=== PATIENT | female | born 1970 | race Caucasian/White ===

== ENCOUNTER 2017-01-09 22:03 | Emergency (ER) | payer OTHER, MEDICAID ==
[~2017-01-09] VITALS: Ht 157.5 cm; Wt 78.0 kg
[2017-01-09 22:31] VITALS: BP 121/62
== END 2017-01-10 01:30 | disposition left against medical advice (07) ==
LOC: ER 22:04
DX: Z71.1 Person with feared health complaint in whom no diagnosis is made (principal); Z53.21 Procedure and treatment not carried out due to patient leaving prior to being seen by health care provider

== ENCOUNTER 2018-12-01 20:04 | Emergency (ER) | payer MEDICAID, OTHER ==
[~2018-12-01] VITALS: Ht 157.5 cm; Wt 72.0 kg
[2018-12-01 20:47] VITALS: BP 107/81
== END 2018-12-02 00:05 | disposition home or self-care (01) ==
LOC: ER 20:04
DX: S60.562A Insect bite (nonvenomous) of left hand, initial encounter (principal); S60.561A Insect bite (nonvenomous) of right hand, initial encounter; F31.9 Bipolar disorder, unspecified; F20.9 Schizophrenia, unspecified; Z98.890 Other specified postprocedural states; Z88.0 Allergy status to penicillin; W57.XXXA Bitten or stung by nonvenomous insect and other nonvenomous arthropods, initial encounter; Y93.89 Activity, other specified; Y92.89 Other specified places as the place of occurrence of the external cause; Y99.8 Other external cause status
CPT/HCPCS: 99282

== ENCOUNTER 2019-01-14 17:32 | Emergency (ER) | payer MEDICAID ==
[~2019-01-14] VITALS: Ht 157.5 cm; Wt 75.0 kg
[2019-01-14 22:30] VITALS: BP 112/66
== END 2019-01-14 22:33 | disposition home or self-care (01) ==
LOC: ER 17:32
DX: R10.30 Lower abdominal pain, unspecified (principal); F20.9 Schizophrenia, unspecified; F31.9 Bipolar disorder, unspecified; Z88.0 Allergy status to penicillin; Z98.890 Other specified postprocedural states
CPT/HCPCS: 99283

== ENCOUNTER 2019-09-04 19:48 | Emergency (ER) | payer MEDICAID ==
[~2019-09-04] VITALS: Ht 157.5 cm; Wt 78.3 kg
[2019-09-04 21:05] LABS: CLARITY URINE CLEAR (CLEAR); COLOR URINE YELLOW (YELLOW); KETONES URINE TRACE (NEGATIVE); LEUKOCYTE ESTERASE URINE NEGATIVE (NEGATIVE); NITRITE URINE NEGATIVE (NEGATIVE); OCCULT BLOOD URINE NEGATIVE (NEGATIVE); PH URINE 6.5 (4.5-8.0); PROTEIN URINE NEGATIVE (NEGATIVE); SPECIFIC GRAVITY URINE 1.013 (1.005-1.030); UROBILINOGEN URINE 0.2 E.U./dL (0.2-1.0)
[2019-09-04 22:00] VITALS: BP 133/47
[2019-09-04] MEDS ORDERED: KETOROLAC 60MG/2ML VIAL IM ONE (22:00)
== END 2019-09-05 00:02 | disposition home or self-care (01) ==
LOC: ER 19:48
DX: M54.5 Low back pain (principal); Z88.0 Allergy status to penicillin
CPT/HCPCS: 72070; 81003; 99284; J1885

== ENCOUNTER 2019-12-25 00:20 | Emergency (ER) | payer MEDICAID ==
[~2019-12-25] VITALS: Ht 157.5 cm; Wt 78.0 kg
[2019-12-25 07:13] LABS: CLARITY URINE CLEAR (CLEAR); COLOR URINE YELLOW (YELLOW); KETONES URINE NEGATIVE (NEGATIVE); LEUKOCYTE ESTERASE URINE NEGATIVE (NEGATIVE); NITRITE URINE NEGATIVE (NEGATIVE); OCCULT BLOOD URINE NEGATIVE (NEGATIVE); PROTEIN URINE NEGATIVE (NEGATIVE); UROBILINOGEN URINE 0.2 E.U./dL (0.2-1.0)
[2019-12-25 09:40] LABS: HEMATOCRIT. 38.6 % (36.0-48.0); MEAN CORPUSCULAR HEMOGLOBIN 30.3 pg (28.0-32.0); MEAN CORPUSCULAR VOLUME 89.6 fL (81.0-99.0); MEAN PLATELET VOLUME 8.9 fl (7.4-10.4); NEUTROPHILS % 57.4 % (40.0-76.0); PLATELET 180 x1000/uL (130-400); RED BLOOD CELL COUNT 4.31 mill/uL (4.2-5.4); RED CELL DISTRIBUTION WIDTH 13.9 % (11.6-14.6)
[2019-12-25 09:41] LABS: BASOPHILS % 0.5 % (0.0-2.0); EOSINOPHILS % 2.5 % (0.0-5.0); LYMPHOCYTES % 31.7 % (20.0-50.0); MONOCYTES % 7.9 % (2.0-8.0)
[2019-12-25 09:46] LABS: CHLORIDE 109 mEq/L (98-107)
[2019-12-25 09:58] LABS: B-HCG QUANTITATIVE < 1 mIU/mL (<3)
[2019-12-25 10:18] VITALS: BP 102/54
== END 2019-12-25 11:01 | disposition home or self-care (01) ==
LOC: ER 00:20
DX: R10.9 Unspecified abdominal pain (principal); D25.9 Leiomyoma of uterus, unspecified; Z88.0 Allergy status to penicillin; Z88.8 Allergy status to other drugs, medicaments and biological substances
CPT/HCPCS: 36415; 76830; 76856; 80053; 81003; 81025; 84702; 85025; 86850; 86900; 93005; 99285

== ENCOUNTER 2023-12-03 15:49 | Emergency (ER) | payer MEDICAID ==
[~2023-12-03] VITALS: Ht 157.5 cm; Wt 74.0 kg
[2023-12-03 15:54] VITALS: BP 138/70; PULSE 83; RESP 18; TEMP 98.7; O2SAT 98
[2023-12-03 16:00] VITALS: O2SAT 99
[2023-12-03 17:06] LABS: CHLORIDE 107 mEq/L (98-107); POTASSIUM 4.3 mEq/L (3.5-5.1); SODIUM 140 mEq/L (136-145)
[2023-12-03 17:07] LABS: CALCIUM 9.3 mg/dL (8.7-10.4); CARBON DIOXIDE 29 mEq/L (21-32)
[2023-12-03 17:11] LABS: BASOPHILS % 0.4 % (0.0-2.0); EOSINOPHILS % 1.3 % (0.0-5.0); HEMATOCRIT. 39.4 % (36.0-48.0); HEMOGLOBIN. 13.2 g/dL (12.0-16.0); LYMPHOCYTES % 28.7 % (20.0-50.0); MEAN CORPUSCULAR HEMOGLOBIN 29.8 pg (28.0-32.0); MEAN CORPUSCULAR HGB CONC 33.5 g/dL (31.0-37.0); MEAN CORPUSCULAR VOLUME 88.9 fL (81.0-99.0); MEAN PLATELET VOLUME 8.5 fl (7.4-10.4); MONOCYTES % 3.7 % (2.0-8.0); NEUTROPHILS % 65.9 % (40.0-76.0); PLATELET 208 x1000/uL (130-400); RED BLOOD CELL COUNT 4.43 mill/uL (4.2-5.4); RED CELL DISTRIBUTION WIDTH 13.2 % (11.6-14.6); WHITE BLOOD COUNT 6.8 x1000/uL (4.5-11.0)
[2023-12-03 17:12] LABS: CREATININE 0.9 mg/dL (0.6-1.0); GLUCOSE 176 mg/dL (70-105); UREA NITROGEN BLOOD 14 mg/dL (9-23)
[2023-12-03 17:15] LABS: TROPONIN I HIGH SENSITIVITY < 4 ng/L (3.0-34)
== END 2023-12-03 16:15 | disposition left against medical advice (07) ==
LOC: ER 15:49
DX: R42 Dizziness and giddiness (principal); Z53.21 Procedure and treatment not carried out due to patient leaving prior to being seen by health care provider
CPT/HCPCS: 36415; 80048; 82962; 84484; 85025; 93005